=== PATIENT | female | born 1995 | race Caucasian/White ===

== ENCOUNTER 2017-10-29 10:57 | Emergency (ER) | payer OTHER ==
[~2017-10-29] VITALS: Ht 157.5 cm; Wt 59.0 kg
[2017-10-29 11:05] VITALS: BP 123/78
--- NOTE | 2017-10-29 11:09 | NUR ---
PT AMBULATED TO BED 7
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
--- NOTE | 2017-10-29 11:26 | NUR ---
XRAY AT BEDSIDE
--- NOTE | 2017-10-29 11:38 | NUR ---
DR CARDONA EVALUATING PT AT BEDSIDE
[2017-10-29 12:31] VITALS: BP 121/78
== END 2017-10-29 12:32 | disposition home or self-care (01) ==
LOC: MED 10:57
DX: M25.531 Pain in right wrist (principal); F41.9 Anxiety disorder, unspecified
CPT/HCPCS: 29125; 73110; 81002; 81025; 99284; Q0092